=== PATIENT | male | born 1975 | race Caucasian/White ===

== ENCOUNTER 2022-08-18 14:55 | Outpatient (CLI) | payer BC, SELFPAY ==
--- NOTE | ~2022-08-18 | CT_ITS ---
EXAMINATION: CT abdomen pelvis w con DATE: 08/18/2022 15:29 INDICATION: Low abdominal pain. TECHNIQUE: Computed tomography (CT) of the abdomen and pelvis was performed with 100 mL Omnipaque 350 intravenous contrast. Automated exposure control and iterative reconstruction technique were employe d. The dose-length product was 870.74 mGy-cm. COMPARISON: None. FINDINGS: The visualized portions of the lung bases demonstrate mild atelectasis. No pleural effusion . The heart size is normal. No pericardial effusion. The liver, spleen, gallbladder, pancreas, adrena l glands, and kidneys are normal. The appendix is fluid-filled and dilated to 14 mm with wall thicken ing and surrounding fat stranding, consistent with appendicitis. The wall of the appendix is disconti nuous. There is diverticulosis of the colon without evidence of diverticulitis. There is mild ileocol ic lymphadenopathy, likely reactive. There is no free intraperitoneal fluid. There is severe lower rober mbar spondylosis. There is mild chronic anterior wedging of T11-L1 vertebral bodies. IMPRESSION: 1. Acute appendicitis, likely ruptured. Reviewed, dictated and finalized at location A.
[2022-08-18 15:13] LABS: Basophils Absolute Auto 0.1 K/mm3 (0.0-0.1); Basophils Percent Auto 0.7 % (0.2-1.2); Eosinophils Absolute Auto 0.3 K/mm3 (0-0.3); Eosinophils Percent Auto 2.7 % (0-4.4); Hematocrit 36.1 % (42.0-52.0); Hemoglobin 12.7 g/dL (14.0-18.0); Immature Granulocyte Absolute 0.03 K/mm3 (0.00-0.031); Immature Granulocyte Percent A 0.3 % (0-0.5); Lymphocytes Absolute Auto 1.66 K/mm3 (0.9-3.2); Lymphocytes Percent Auto 17.5 % (18.3-44.2); Mean Corpuscular HGB Conc 35.2 g/dl (32-36); Mean Corpuscular Volume 85.3 fl (80-100); Mean Platelet Volume 9.4 fl (7.4-10.4); Monocytes Absolute Auto 0.8 K/mm3 (0.1-0.6); Monocytes Percent Auto 8.4 % (2.6-8.5); Neutrophils Absolute Auto 6.7 K/mm3 (1.3-6.7); Neutrophils Percent Auto 70.4 % (45.5-73.1); Platelet Count Result 396 k/mm3 (150-375); Red Blood Count 4.23 M/mm3 (4.6-6.20); Red Cell Distribution Width 12.2 % (11.5-14.5); White Blood Count 9.5 K/mm3 (4.5-10.0)
[2022-08-18 15:26] LABS: Alanine Aminotransferase 20 U/L (6-50); Albumin Level 4.4 g/dL (3.5-5.1); Alkaline Phosphatase 79 U/L (38-126); Anion Gap 11 mmol/L (8-16); Aspartate Amino Transferase 21 U/L (17-59); Bilirubin,Total 0.6 mg/dL (0.2-1.3); Blood Urea Nitrogen 19 mg/dL (9-20); Calcium 9.3 mg/dL (8.4-10.2); Carbon Dioxide 27 mmol/L (22-30); Chloride 99 mmol/L (98-107); Estimated Glomerular Filt Rate > 60; Glucose 112 mg/dL (65-110); Lipase 110 U/L (23-300); Potassium 3.6 mmol/L (3.4-5.0); Sodium 137 mmol/L (137-145)
[2022-08-18 19:09] LABS: Appearance Urine Clear (Clear); Bacteria Urine None Seen /hpf; Bilirubin Urine Negative (Negative); Blood Urine Negative (Negative); Color Urine Yellow (Yellow); Glucose Urine UA Negative (Negative); Ketones Urine Negative (Negative); Leukocyte Esterase Ur Negative LEU/UL (Negative); Need Manual Microscopic Reviewed; Nitrate Urine Negative (Negative); Non Pathogenic Casts 0-2; Protein Urine Trace mg/dL (Negative); RBC Urine 0-2 /hpf (0-2); Squamous Epithelial Cell Urine None seen /hpf (Few); Urobilinogen Urine 0.2 mg/dL (<2.0); WBC Urine 0-5 /hpf
[2022-08-18 19:11] LABS: Add Urine Microscopic? YES; Specific Grav Ur 1.074 (1.001-1.035)
== END 2022-08-18 14:56 | disposition home or self-care (01) ==
PROVIDERS: Visit Provider Internal Medicine
DX: K35.80 Unspecified acute appendicitis (principal); R10.9 Unspecified abdominal pain
CPT/HCPCS: 36415; 74177; 80048; 80076; 81001; 83690; 85025; Q9967

== ENCOUNTER 2022-08-18 16:19 | Inpatient (IN) | payer BC, SELFPAY ==
[2022-08-18 16:23] VITALS: PULSE 60; RESP 16; TEMP 36.9; O2SAT 100
--- NOTE | 2022-08-18 16:28 | ED.ABDPAIN ---
HPI - Abdominal Pain General Chief Complaint: Abdominal Pain Stated Complaint: abd pain Time Seen by Provider: 08/18/22 16:21 Source: patient and RN notes reviewed Mode of arrival: ambulatory Limitations: no limitations History of Present Illness HPI narrative: This is a 47 year old male who presents from radiology for evaluation of a rupture appendicitis. Patient states he developed diffuse abdominal pain on Tuesday. He states his pain was severe on Tuesday and Tuesday. It improved on Tuesday so he has been going to work. He was evaluated by his PCP and he had outpatient CT scan today. He reports having fever over the weekend. He has been taking tylenol for his pain. He reports he last ate granola bar at 930 am. Denies abdominal surgeries Related Data Home Medications Medication Instructions Recorded Confirmed gemfibrozil 600 mg tablet 600 mg DAILY 08/18/22 08/18/22 Allergies Allergy/AdvReac Type Severity Reaction Status Date / Time No Known Allergies Allergy Verified 08/18/22 16:29 Review of Systems Review of Systems: All systems reviewed & are unremarkable except as noted in HPI and below PMFSH Past Medical History Medical History (Updated 08/18/22 @ 23:34 by Mya Garsia MD) Hyperlipidemia Surgical History Surgical History (Updated 08/18/22 @ 16:33 by Mya Garsia MD) H/O oral surgery Family History Family History (Updated 08/18/22 @ 18:28 by Malou Hernandez RN) Mother Hypertension Sibling Hypertension Sibling Hypertension Father H/O heart artery stent Social History Social History (Updated 08/18/22 @ 16:33 by Mya Garsia MD) Smoking status: Never smoker Alcohol intake: current Drinks per week: 4 Substance use: never Lack of Transportation: No Lack of Food: Never True Current Housing: I Have Housing Concerned About Future Housing: No Difficulty Paying Gas/Electric Bills: No Difficulty Paying for Meds: No Currently Unemployed: No Education: Master's Degree or Higher Difficulty w/ Childcare or Family Care: No Spiritual care concerns: No Exam Const: General: no acute distress and alert Nutritional Appearance: well nourished Orientation/consciousness: patient oriented x3 HENMT: Head: normal to inspection Eyes: EOM: EOMs intact bilaterally Chest: Chest palpation & inspection: normal inspection of the chest Resp: Effort & Inspection: normal respiratory effort Auscultation: clear to auscultation bilaterally Cardio: Rate: regular rate Rhythm: regular rhythm Heart sounds: no murmurs GI: Inspection: distended GI Palp: Yes Soft to palpation, Yes Tenderness to palpation present (GI) (diffuse), No Guarding due to palpation present (GI) and No Rigid due to palpation Auscultation: normal bowel sounds Back/Spine/Pelvis: Back: no CVA tenderness Skin: General skin exam: normal color Rashes: no rashes Wounds: no wounds Neuro: General: patient oriented x3, moves all extremities and CN's II-XI intact bilaterally Cranial nerves: Yes Nystagmus not present Speech: normal speech Gait exam (Neuro): Normal gait present Extrem: General: normal to inspection Psych: Mental Status: mental status grossly normal Affect: normal affect Attitude: cooperative Course Consultations Consultation #1: I Discussed case with Dr. Lima. He accepts patient to service. I discussed CT . He agrees with IV zosyn,IV Fluid maintenance 120 ml/hr, and repeat cbc, bmp tomorrow. Date: 08/18/22 Time: 16:38 Vital Signs Vital signs: Vital Signs Temperature 98.4 F 08/18/22 16:23 Pulse Rate 60 08/18/22 16:23 Respiratory Rate 16 08/18/22 16:23 Pulse Oximetry 100 08/18/22 16:23 Temperature 98.3 F 08/18/22 21:06 Pulse Rate 54 L 08/18/22 21:06 Respiratory Rate 18 08/18/22 21:06 Blood Pressure 131/94 H 08/18/22 21:06 Pulse Oximetry 99 08/18/22 21:06 Oxygen Delivery Room Air 08/18/22 18:39 MDM - Abdominal Pain
[2022-08-18] MEDS: PIPERACILLN/TAZ 3.375GM/NS50ML 3.375 GM/50 ML BAG IVPB (16:35)
[2022-08-18 17:00] VITALS: BP 143/91; PULSE 61; RESP 16; O2SAT 99
[2022-08-18 17:25] VITALS: BP 140/90; PULSE 60; RESP 16; O2SAT 98
[2022-08-18 17:53] VITALS: BP 146/80; PULSE 58; RESP 17; TEMP 36.7; O2SAT 100
--- NOTE | 2022-08-18 18:18 | ADMGEN ---
This patient, Pa Lemons, was admitted to 2 Medical Room 261-01. Patient/family oriented to hospital policies and general routines including ID bracelet, bed and alarms, visiting hours, pain management, procedures, bathroom and other care routines, personal items, smoking policy, room service/diet, and visiting hours. Information on how to activate the Rapid Response Team has been discussed. Patient/Family are encouraged to report perceived risks to care and to ask questions if they do not understand what they are told or what they should do.
[2022-08-18] MEDS: LACTATED RINGERS 1,000 ML 125 ML IV CONT (18:34)
[2022-08-18 21:06] VITALS: BP 131/94; PULSE 54; RESP 18; TEMP 36.8; O2SAT 99
[2022-08-19] MEDS: PIPERACILLN/TAZ 3.375GM/NS50ML 3.375 GM/50 ML BAG IVPB ×5 (00:16→23:27)
[2022-08-19] MEDS: LACTATED RINGERS 1,000 ML 125 ML IV CONT (03:06)
[2022-08-19 05:00] VITALS: BP 101/58; PULSE 62; RESP 18; TEMP 36.6; O2SAT 96
[2022-08-19 07:07] LABS: Alanine Aminotransferase 19 U/L (6-50); Alkaline Phosphatase 79 U/L (38-126); Anion Gap 7 mmol/L (8-16); Aspartate Amino Transferase 21 U/L (17-59); Bilirubin,Total 0.8 mg/dL (0.2-1.3); Blood Urea Nitrogen 16 mg/dL (9-20); Carbon Dioxide 28 mmol/L (22-30); Chloride 103 mmol/L (98-107); Estimated CRCL calculation 104 ml/min; Estimated Glomerular Filt Rate > 60; Glucose 112 mg/dL (65-110); Potassium 3.7 mmol/L (3.4-5.0); Sodium 138 mmol/L (137-145)
--- NOTE | 2022-08-19 08:42 | PM.IMHP ---
H&P: HPI History of Present Illness Date/Time: 08/19/22 08:42 Chief Complaint: Acute appendicitis Narrative: Patient is a 47-year-old healthy male who presented to the emergency room yesterday after having an outpatient CT scan abdomen pelvis performed after having severe right lower quadrant abdominal pain about 4 days ago over the weekend. He stated he had diffuse pain which localized to right lower quadrant Tuesday and Tuesday but then the pain improved by Tuesday and he went back to work. He did have subjective fevers over the weekend but none since. No diarrhea or nausea or vomiting. The CT scan showed an appendix which was dilated to 13mm with 1 area of the wall that looked to be discontinuous with possible rupture. No free air was noted. No periappendiceal abscess was noted. There was some inflammatory changes around the appendix which were mild. His white blood cell count was 9000 and he was afebrile. Review of Systems Review of Systems: I have discussed the patient with [employer] [facility] and agree with the documented note below and care plan. [facility] Past Medical History Medical History Hyperlipidemia Surgical History Surgical History H/O oral surgery Family History Family History Mother Hypertension Sibling Hypertension Sibling Hypertension Father H/O heart artery stent Social History Social History Smoking status: Never smoker Alcohol intake: current Drinks per week: 4 Substance use: never Lack of Transportation: No Lack of Food: Never True Current Housing: I Have Housing Concerned About Future Housing: No Difficulty Paying Gas/Electric Bills: No Difficulty Paying for Meds: No Currently Unemployed: No Education: Master's Degree or Higher Difficulty w/ Childcare or Family Care: No Spiritual care concerns: No Meds Home Medications and Allergies Home Medications Medication Instructions Recorded Confirmed Type gemfibrozil 600 mg tablet 600 mg DAILY 08/18/22 08/18/22 History Allergies Allergy/AdvReac Type Severity Reaction Status Date / Time No Known Allergies Allergy Verified 08/18/22 16:29 Vital Signs Vital Signs - 24 hr 08/18/22 16:23 08/18/22 17:00 08/18/22 17:25 Temperature 36.9 C Pulse Rate 60 61 60 Respiratory Rate 16 16 16 Blood Pressure 143/91 H 140/90 Pulse Oximetry 100 99 98 Oxygen Delivery 08/18/22 17:53 08/18/22 18:39 08/18/22 21:06 Temperature 36.7 C 36.8 C Pulse Rate 58 L 54 L Respiratory Rate 17 18 Blood Pressure 146/80 H 131/94 H Pulse Oximetry 100 99 Oxygen Delivery Room Air 08/19/22 05:00 Temperature 36.6 C Pulse Rate 62 Respiratory Rate 18 Blood Pressure 101/58 L Pulse Oximetry 96 Oxygen Delivery Exam Const: General: comfortable and no acute distress Other: Patient states he has minimal to no abdominal pain. HENMT: Face/Nose/Sinus: Normal nares present Mouth: Yes moist mucous membranes Eyes: General: appearance normal, both eyes and all related structures Pupils: Equal, round and reactive pupils present Neck: Neck: supple and no JVD Resp: Effort & Inspection: normal respiratory effort Auscultation: clear to auscultation bilaterally Cardio: Rate: regular rate Rhythm: regular rhythm GI: GI Palp: Yes Soft to palpation, No Firmness to palpation present (GI), No Tenderness to palpation present (GI), No Guarding due to palpation present (GI) and No Hernia present Other: Minimal tenderness without any guarding in the right lower quadrant. No masses or hernias are noted. Neuro: General: gait normal Speech: normal speech Motor exam (neuro): 5/5 motor strength present throughout Sensory Exam: normal sensation Extrem: General: normal to inspection Psych: Mental
[2022-08-19] MEDS: LACTATED RINGERS 1,000 ML 75 ML IV CONT ×2 (11:15→20:24)
[2022-08-19 14:00] VITALS: BP 119/63; PULSE 60; RESP 20; TEMP 36.7; O2SAT 99
[2022-08-19 19:44] VITALS: BP 133/65; PULSE 54; RESP 20; TEMP 36.2; O2SAT 100
[2022-08-20 03:20] VITALS: BP 110/61; PULSE 51; RESP 20; TEMP 36.8; O2SAT 96
[2022-08-20] MEDS: LACTATED RINGERS 1,000 ML 75 ML IV CONT (04:49)
[2022-08-20 05:20] LABS: Basophils Absolute Auto 0.1 K/mm3 (0.0-0.1); Basophils Percent Auto 0.8 % (0.2-1.2); Eosinophils Absolute Auto 0.3 K/mm3 (0-0.3); Hematocrit 35.1 % (42.0-52.0); Hemoglobin 11.7 g/dL (14.0-18.0); Immature Granulocyte Absolute 0.06 K/mm3 (0.00-0.031); Immature Granulocyte Percent A 0.6 % (0-0.5); Lymphocytes Absolute Auto 2.11 K/mm3 (0.9-3.2); Lymphocytes Percent Auto 22.2 % (18.3-44.2); Mean Corpuscular HGB Conc 33.3 g/dl (32-36); Mean Corpuscular Hemoglobin 29.5 pg (26-34); Mean Corpuscular Volume 88.4 fl (80-100); Mean Platelet Volume 9.3 fl (7.4-10.4); Monocytes Absolute Auto 0.8 K/mm3 (0.1-0.6); Monocytes Percent Auto 8.3 % (2.6-8.5); Neutrophils Absolute Auto 6.2 K/mm3 (1.3-6.7); Neutrophils Percent Auto 65.1 % (45.5-73.1); Platelet Count Result 355 k/mm3 (150-375); Red Blood Count 3.97 M/mm3 (4.6-6.20); Red Cell Distribution Width 12.2 % (11.5-14.5); White Blood Count 9.5 K/mm3 (4.5-10.0)
[2022-08-20] MEDS: PIPERACILLN/TAZ 3.375GM/NS50ML 3.375 GM/50 ML BAG IVPB ×2 (06:02→11:13)
--- NOTE | 2022-08-20 14:33 | PM.DS ---
DS: Admitting Diagnosis Discharge Date 08/20/22 Admitting Diagnosis Acute appendicitis with possible perforation DS: Discharge Diagnosis Discharge Diagnosis (1) Acute appendicitis: Code(s): K35.80 - Unspecified acute appendicitis Status: Acute Assessment and Plan: Patient was treated non operatively with IV antibiotics and clinically improved. Will discharge home with a course of oral antibiotics for 2 weeks and plan on an interval laparoscopic appendectomy in about 4 to 6 weeks. Was discharged home on Augmentin and Flagyl for antibiotics. Follow-up in the office in 2 weeks. DS: Summary Hospital Course Reason for hospitalization: Acute appendicitis with possible perforation without abscess Hospital Course: The patient was admitted through the emergency room after having an outpatient CT scan performed of the abdomen pelvis. He had pain in the right lower quadrant the abdomen was pretty severe 3 days prior to having the CT scan done. By the time he had a CT scan done as an outpatient the pain had mostly resolved. He did admit to having some subjective fevers during the weekend but had not had a fever in the last 24hours. On the CT scan there was a dilated appendix up to 13mm. No appendicoliths was seen. There was 1 area of the appendix where the wall seemed to be discontinuous and possibly perforated. However there is no free air the CT scan and no evidence of periappendiceal abscess. White blood cell count is normal at 9000. He was admitted to the hospital on Zosyn for IV antibiotics. His abdomen was relatively benign on exam and only had very minimal tenderness to deep palpation right lower quadrant. No generalized peritoneal signs or masses were palpated. As it appeared he would respond well to non operative management with a plan for an interval appendectomy in about 4 to 6 weeks I want head gave him a diet which he tolerated well. His white blood count next day was still 9000 and had no right lower quadrant pain. He was then discharged home on oral antibiotics to include Augmentin Flagyl for the next 2 weeks. I will see him back in the office in 1 to 2 weeks and then schedule him for a elective interval laparoscopic appendectomy. Status at Discharge Functional status at discharge: independent ambulation Overall status at discharge: patient is back to baseline Time Spent with Patient Time attestation: Total time spent providing and/or coordinating discharge services: Time spent: Less than 30 minutes Exam Narrative: The abdomen is soft and nondistended. Minimal to no tenderness in the right lower quadrant with deep palpation. No masses appreciated no hernias are noted. Const: General: comfortable and no acute distress HENMT: Face/Nose/Sinus: Normal nares present Mouth: Yes moist mucous membranes Eyes: General: appearance normal, both eyes and all related structures Pupils: Equal, round and reactive pupils present EOM: EOMs intact bilaterally Neck: Neck: supple and no JVD Resp: Effort & Inspection: normal respiratory effort Auscultation: clear to auscultation bilaterally Cardio: Rate: regular rate Rhythm: regular rhythm GI: GI Palp: Yes Soft to palpation, No Firmness to palpation present (GI), No Tenderness to palpation present (GI), No Guarding due to palpation present (GI) and No Hernia present Neuro: General: gait normal Motor exam (neuro): 5/5 motor strength present throughout Sensory Exam: normal sensation Extrem: General: normal to inspection Psych: Mental Status: mental status grossly normal Affect: normal affect DS: Data Data Completed and Pending Labs on day of discharge: Labs from last 24 hours 08/20/22 05:07 WBC 9.5 RBC 3.97 L Hgb 11.7 L Hct 35.1 L MCV 88.4 MCH 29.5 MCHC 33.3 RDW 12.2 Plt Count 355 MPV 9.3 Immature Gran % (Auto) 0.6 H Neut % (Auto) 65.1 Lymph % (Auto) 22.2 Clare % (Auto) 8.3 Eos % (Auto) 3.0 Baso % (Auto) 0.8 Ly
== END 2022-08-20 12:58 | disposition home or self-care (01) | DRG 373 ==
LOC: ANHED 16:35 → ANH2MED 17:31
PROVIDERS: Admitting Provider Surgery; Emergency Provider General Practice; Visit Provider Surgery
DX: K35.32 Acute appendicitis with perforation, localized peritonitis, and gangrene, without abscess (principal); E78.5 Hyperlipidemia, unspecified
CPT/HCPCS: 36415; 80053; 85025; 96365; 99285; G0378; J2543; J7120

== ENCOUNTER 2022-09-25 12:18 | Outpatient (CLI) | payer BC, SELFPAY ==
--- NOTE | 2022-09-25 12:34 | ECG_ITS ---
Measurements Intervals [place] Rate: 55 P: 34 GA: 144 QRS: 44 QRSD: 98 T: 45 QT: 447 QTc: 428 Interpretive Statements SINUS BRADYCARDIA BORDERLINE ECG NO PREVIOUS ECG AVAILABLE FOR COMPARISON Electronically Signed On 09-25-2022 17:46:59 CDT by Sunil Beltrán D.O.
== END 2022-09-25 12:19 | disposition home or self-care (01) ==
LOC: ANHLAB 12:20
PROVIDERS: Visit Provider Anesthesiology
DX: E78.00 Pure hypercholesterolemia, unspecified (principal); Z01.818 Encounter for other preprocedural examination; R94.31 Abnormal electrocardiogram [ECG] [EKG]
CPT/HCPCS: 93005

== ENCOUNTER 2022-09-27 01:54 | Day surgery (SDC) | payer BC, SELFPAY ==
[2022-09-20 12:46] VITALS: BMI 28.3
--- NOTE | 2022-09-20 12:51 | PC.NURSE ---
Report to the Outpatient Waiting Room, entrance under the green pavilion located off [facility], at time 6:00 on date 09/27/22. Planned Procedure Time: 7:30. Time changes happen often and if your time is changed the preop area will call you the afternoon before. - You and your visitor will be asked to self-screen and do not enter if you have any COVID symptoms. - A mask is optional within the hospital at this time. Patients may have clear liquids (water, carbonated beverages, clear teas, apple juice) until 3 hours prior to surgery (4:30) with a maximum of 20 ounces. - No food from midnight until time of surgery Take the following medications with a SIP of water the morning of surgery: NONE DO NOT STOP ANY OF YOUR OTHER PRESCRIPTION MEDICATIONS PRIOR TO SURGERY?EXCEPT THE FOLLOWING Medications to discontinue per physician: N/A Date to take last dose: N/A Please no make-up, nail german, hairspray, perfume, deodorant, or body powder the day of surgery. No jewelry (including any body piercings) or valuables the day of surgery, leave them at home. Please take a shower or bath the night before, or the morning of, surgery with an antibacterial soap. Wear comfortable, loose fitting clothing. - Jewelry must be removed prior to entering the operating room. Rings and piercings that are not removed may be cut off. - The hospital will not accept responsibility for valuables. - Please leave all valuables, including medications, at home the day of surgery. If you are going home after surgery, a licensed swing driver must drive you home. - NO public transportation without another adult if you receive anesthesia. - We recommend that an adult stay with you for 24 hours following discharge. - We also recommend that you do not drive, make important decision, drink alcoholic beverages, or take any drugs that were not prescribed by your health care provider for at least 24 hours after your discharge time. Follow any additional instructions given to you from your surgeon. If you or anyone in your household have experienced Covid symptoms in the past week, please notify your surgeon or the nurse liaison at the phone number below for possible testing. Telephone instructions given to PT - SABA HOGAN and asked if any additional questions and then verbalized understanding. Patient advised to call surgeon office or pre surgery nurse liaison [phone] if any additional questions.
[2022-09-27] VITALS (9 sets, daily range): BP systolic 128–140; BP diastolic 73–78; PULSE 45–70; RESP 12–14; TEMP 36.2–36.3; O2SAT 95–100
--- NOTE | 2022-09-27 07:24 | WPDHPUPDATE1 ---
History and Physical Update Update Date/Time: 09/27/22 07:24 History and Physical has been reviewed, including an updated exam of the patient. There are NO changes in the patient's condition. Risks, benefits, and alternatives have been discussed and questions answered. Patient agrees to proceed with procedure.
[2022-09-27] MEDS: KETOROLAC 15 MG/ML VIAL (*BKC) IV PUSH ×2 (08:20→10:20)
[2022-09-27] MEDS: LACTATED RINGERS 1,000 ML 30 ML IV CONT ×2 (08:22→10:44)
--- NOTE | 2022-09-27 08:25 | P.PNAN_ITS ---
Anes - Eval Pre Procedure Procedure: Operation Date: 09/27/22 09:30 Proposed Procedures p Laparoscopic Interval Appendectomy, Possible Open - Pa Lima MD Date/Time: 09/27/22 08:25 Surgeon: Clarence Preop Diagnosis: Perforated appendix Pre Op Diagnosis: hx of perforated appendicitis Patient Data Age: 47 Gender: M Height: 1.85 m Weight: 97.35 kg Last Vital Signs Temp 97.2 F L 09/27/22 08:19 Pulse 45 L 09/27/22 08:19 Resp 14 09/27/22 08:19 BP 130/77 09/27/22 08:19 Pulse Ox 100 09/27/22 08:19 O2 Del Method Room Air 09/27/22 08:19 Allergies Allergy/AdvReac Type Severity Reaction Status Date / Time No Known Allergies Allergy Verified 09/27/22 08:24 Home Medications Medication Instructions Recorded Confirmed Type gemfibrozil 600 mg tablet 600 mg DAILY 08/18/22 09/20/22 History ECG: ? Measurements Intervals? [place]? Rate: ? 55 ? P:? 34 SD: ? 144? QRS:? 44 QRSD: ? 98 ? T:? 45 QT: ? 447? QTc:? 428? Interpretive Statements SINUS BRADYCARDIA BORDERLINE ECG NO PREVIOUS ECG AVAILABLE FOR COMPARISON Electronically Signed On 09-25-2022 17:46:59 CDT by Sunil Beltrán D.O. Dictated By:? Sunil Beltrán DO? 09/25/221745 Signed By:? ? <Electronically signed by? Sunil Beltrán DO in OV> 09/25/221746 Patient hx anesthesia problems: none Family hx anesthesia problems: none Results Review: All pre-operative results and documents have been reviewed as part of the pre- operative evaluation. [facility] Past Medical History Medical History Hyperlipidemia Surgical History Surgical History H/O oral surgery Family History Family History Mother Hypertension Sibling Hypertension Sibling Hypertension Father H/O heart artery stent Social History Social History Smoking status: Never smoker Alcohol intake: current Drinks per week: 4 Alcohol use details: 3/MONTH Substance use: never Substance use type: does not use Lack of Transportation: No Lack of Food: Never True Current Housing: I Have Housing Concerned About Future Housing: No Difficulty Paying Gas/Electric Bills: No Difficulty Paying for Meds: No Currently Unemployed: No Education: Master's Degree or Higher Difficulty w/ Childcare or Family Care: No Living arrangements: with family Spiritual care concerns: No Exam Day of Procedure 09/27/22 08:25
--- NOTE | 2022-09-27 08:30 | P.PNAN_ITS ---
Anes - Eval Final PreProcedure Day of Procedure 09/27/22 08:30 Patient weight: overweight Heart: regular rate and rhythm Lungs: clear to auscultation Airway: Mallampati scale class II Neurological: alert and oriented Last oral intake: >/= 8 hours ASA classification: II Emergent: no Anesthetic plan: proceed Anesthesia type and monitoring: general ETT and standard monitoring Results Review: All pre-operative results and documents have been reviewed as part of the pre- operative evaluation. Informed Consent: The patient's anesthetic plan and its attendant risks and benefits were discussed with the patient/family/POA. Questions were solicited and answers provided to the satisfaction of the patient/family/POA.
[2022-09-27] MEDS: ceFAZolin 2 GM/D5W 50 ML 2 GM/50 ML BAG IVPB (08:35)
[2022-09-27] MEDS: metroNIDAZOLE 500 MG/ISO 100ML 500 MG/100 ML BAG 100 MG IVPB (09:09)
[2022-09-27] MEDS: BUPivacaine HCL 0.5% 10 ML AMP 20 ML INFILTRATE (09:58)
[2022-09-27] MEDS: LIDO 1%/EPINEPHRINE 1:100,000 50 ML VIAL INFILTRATE (09:59)
--- NOTE | 2022-09-27 10:40 | SUR.OPER ---
200mL of clear yellow urine drained from avalos
--- NOTE | 2022-09-27 10:44 | W.PM.PROC2 ---
Procedure Note - Detailed Date of Procedure 09/27/22 Pre-op Diagnosis Hx of perforated appendicitis Post-op Diagnosis Same Procedure Performed Interval laparoscopic appendectomy Surgeon Pa Lima MD Tray Delivery Aide Pritesh Burton, MANAGER FOOD BEVERAGE Anesthesia General Indications Patient is a 47-year-old white male who about 5 weeks ago was admitted to the hospital with an acute appendicitis with small area of perforation. He actually responded well to a course of nonoperative management and IV and oral antibiotics. He presents now for an interval laparoscopic appendectomy. Findings The appendix was chronically inflamed and mildly thickened with adhesions consistent with prior inflammation. No periappendiceal abscess or fecal material was noted. The base of the appendix appeared to be normal. Description of Procedure After informed consent was obtained patient brought to the operating room was placed in supine position and general endotracheal anesthesia was administered. A Briseno catheter was placed across the bladder. The abdomen was then prepped and draped in usual sterile fashion. I 1st entered the abdomen in the left upper quadrant utilizing a 5mm Optiview port with a direct optical insertion. Once inside the abdomen insufflated adequate pneumoperitoneum and visualized the lower abdomen pelvis. There were no adhesions of the bowel or omentum to the abdominal wall or pelvis. I then placed a 5mm suprapubic trocar port and a 12mm periumbilical trocar port and a 5mm left lower quadrant trocar port all under direct visualization. I then placed the patient head-down Trendelenburg position and retracted the small bowel and the pelvis up into the midportions and upper portions of the abdomen. The terminal ileum was urine to the mesentery with some chronic inflammatory changes and a few adhesions to the lateral wall. A careful the scopic scissor dissection I was able to release these adhesions to expose the appendix. With the terminal ileum was mobilized cephalad I was able to hold the appendix in the midportion and followed back to the base where the cecum appeared to be normal. I then made a defect through the mesoappendix near the base with a [place] dissector and then utilized a vascular load to a 45mm Endo-MELIA stapler to divide the mesoappendix. I then used a blue load to the same stapler to divide the appendix flush with the cecum. The appendix was then placed in Endo-Catch bag and brought out through the periumbilical trocar port site. The appendix was passed off table to pathology for examination. I then irrigated out the right lower quadrant the abdomen with sterile saline solution. Both staple lines appeared to be hemostatic. I then removed all the trocar ports under direct visualization all port sites appeared hemostatic. I then allowed the abdomen decompressed. The 12mm periumbilical trocar port fascial defect was then closed utilizing 0 Vicryl suture placed in a figure-eight fashion. All the port sites were then closed utilizing a running subcuticular 4-0 Monocryl suture at the skin level. Skin glue was used for final dressing. The patient tolerated the procedure well no complications. All sponges, needles, and instrument counts were correct at the end procedure. EBL was _10__cc. The patient was awakened and taken to recovery in stable and satisfactory condition. Implants None Estimated Blood Loss 10 Drains No Packing No Pathology Yes (Appendix to pathology) Complications No immediate complications Condition Stable Disposition PACU [facility] Billing Surgery - Charge Forward: Surgery Billing
== END 2022-09-27 12:10 | disposition home or self-care (01) ==
PROVIDERS: PCP Internal Medicine; Visit Provider Surgery
PROC: 0DTJ4ZZ Resection of Appendix, Percutaneous Endoscopic Approach (ICD-10-PCS; CPT 44970; principal; 2022-09-27 09:30)
DX: K36 Other appendicitis (principal); E78.5 Hyperlipidemia, unspecified
CPT/HCPCS: 44970; 88304; J0330; J0690; J1100; J1170; J1885; J2250; J2405; J2704; J2710; J7030; J7120

== ENCOUNTER 2023-12-02 07:41 | Outpatient (CLI) | payer BC, SELFPAY ==
[2023-12-02 08:16] LABS: Alanine Aminotransferase 25 U/L (6-50); Albumin Level 5.1 g/dL (3.5-5.1); Alkaline Phosphatase 78 U/L (38-126); Anion Gap 12 mmol/L (4-12); Aspartate Amino Transferase 27 U/L (17-59); Bilirubin,Total 0.6 mg/dL (0.2-1.3); Blood Urea Nitrogen 22 mg/dL (9-20); Calcium 9.4 mg/dL (8.4-10.2); Carbon Dioxide 28 mmol/L (22-30); Chloride 100 mmol/L (98-107); Cholesterol 237 mg/dL (0-200); Estimated Glomerular Filt Rate > 60; Glucose 107 mg/dL (65-110); HDL Direct 49 mg/dL; Potassium 3.8 mmol/L (3.4-5.0); Sodium 140 mmol/L (137-145); Triglycerides 129 mg/dL (<150)
[2023-12-02 08:21] LABS: Hematocrit 41.5 % (42.0-52.0); Hemoglobin 14.1 g/dL (14.0-18.0); Mean Corpuscular Hemoglobin 30.2 pg (26-34); Mean Corpuscular Volume 88.9 fl (80-100); Mean Platelet Volume 10.5 fl (7.4-10.4); Platelet Count Result 313 k/mm3 (150-375); Red Blood Count 4.67 M/mm3 (4.6-6.20); Red Cell Distribution Width 12.3 % (11.5-14.5); White Blood Count 4.9 K/mm3 (4.5-10.0)
[2023-12-02 08:27] LABS: LDL Cholesterol Direct 146 mg/dL
[2023-12-02 08:46] LABS: Prostate Specific Antigen 1.5 ng/mL (< OR = 4.0)
[2023-12-02 09:16] LABS: Vitamin D 25 Hydroxy 32.9 ng/mL
== END 2023-12-02 07:42 | disposition home or self-care (01) ==
LOC: ANHLAB 07:42
PROVIDERS: PCP Family Medicine; Visit Provider Family Medicine
DX: Z00.00 Encounter for general adult medical examination without abnormal findings (principal); E66.9 Obesity, unspecified; E78.5 Hyperlipidemia, unspecified; Z76.89 Persons encountering health services in other specified circumstances
CPT/HCPCS: 36415; 80053; 80061; 82306; 84153; 85027; G0103

== ENCOUNTER 2024-12-01 07:08 | Outpatient (CLI) | payer BC, SELFPAY ==
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
--- OUTSIDE RECORDS SUMMARY | 2024-12-01 07:11 | XMS_ITS | Encounter Summary ---
Author Organization [facility] Address [address] [place] [address] Phone Care Team Providers Care Systems Development Consultant Name Role Phone Abdullahi Perry MD Primary Care Provider [phone] Abdullahi Perry MD Unavailable [phone] Encounter Details Date Type Department Care Team (Late st Contact Info) Description 09/03/2017 Orders Only [facility] ProviderMyla MD [address] [place] [address] Social History Tobacco Use Types Packs/Day Years Used Date Smoking Tobacco: Never Smokeless Tobacco: Never Alcohol Use Standard Drinks/Week Comments Yes 0 (1 standard drink = 0.6 oz pur e alcohol) Sex and Gender Information Value Date Recorded Sex Assigned at Not on file 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 Historical Provider LAB BLOOD ORDERABLES Mariana l Result documented in this encounter Visit Diagnoses Not on filedocumented in this encounter Care Teams Systems Development Consultant Relationship Specialty Start Date End Date Abdullahi Perry MD PCP - General Internal Medicine 06/27/17 Abdullahi Perry MD Internal Medicine 06/27/17 documented as of this encounter
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
[2024-12-01 07:29] LABS: Hematocrit 40.1 % (42.0-52.0); Hemoglobin 13.9 g/dL (14.0-18.0); Immature Granulocyte Percent A 0.3 % (0-0.5); Lymphocytes Absolute Auto 2.06 K/mm3 (0.9-3.2); Mean Corpuscular HGB Conc 34.7 g/dl (32-36); Mean Corpuscular Hemoglobin 30.3 pg (26-34); Mean Corpuscular Volume 87.6 fl (80-100); Nucleated Red Blood Cells Absolute Auto 0.000 K/mm3 (0.0-0.012); Nucleated Red Blood Cells Perc 0.0 % (0.0-0.2); Platelet Count Result 307 k/mm3 (150-375); Red Blood Count 4.58 M/mm3 (4.6-6.20); White Blood Count 5.8 K/mm3 (4.5-10.0)
[2024-12-01 07:53] LABS: Alanine Aminotransferase 20 U/L (6-50); Albumin Level 4.5 g/dL (3.5-5.1); Alkaline Phosphatase 87 U/L (38-126); Anion Gap 10 mmol/L (4-12); Aspartate Amino Transferase 29 U/L (17-59); Bilirubin,Total 0.6 mg/dL (0.2-1.3); Blood Urea Nitrogen 21 mg/dL (9-20); Calcium 9.4 mg/dL (8.4-10.2); Carbon Dioxide 24 mmol/L (22-30); Chloride 105 mmol/L (98-107); Cholesterol 251 mg/dL (0-200); Estimated Glomerular Filt Rate > 60; Glucose 118 mg/dL (65-110); HDL Direct 43 mg/dL; Potassium 4.1 mmol/L (3.4-5.0); Sodium 139 mmol/L (137-145); Total Protein 7.7 g/dL (6.3-8.2); Triglycerides 290 mg/dL (<150)
[2024-12-01 08:28] LABS: Prostate Specific Antigen 1.5 ng/mL (< OR = 4.0)
[2024-12-05 01:07] LABS: Free Testosterone (Direct) 8.7 pg/mL (7.2-24.0)
== END 2024-12-01 07:09 | disposition home or self-care (01) ==
LOC: ANHLAB 07:10
PROVIDERS: PCP Family Medicine; Visit Provider Family Medicine
DX: Z00.00 Encounter for general adult medical examination without abnormal findings (principal); Z12.5 Encounter for screening for malignant neoplasm of prostate; E66.9 Obesity, unspecified; E78.5 Hyperlipidemia, unspecified
CPT/HCPCS: 36415; 80053; 80061; 82172; 82306; 84153; 84402; 85025; G0103

== ENCOUNTER 2025-02-01 14:50 | Outpatient (CLI) | payer BC, SELFPAY ==
--- OUTSIDE RECORDS SUMMARY | 2025-02-01 14:54 | XMS_ITS | Clinical Summary ---
Author Organization [facility] Medical Office Building A Address [address] [place] [address] Care Team Providers Care Steel Detailer Name Role Phone Abdullahi Perry MD Primary Care Provider [phone] Abdullahi Perry MD Unavailable Allergies No known active allergies Medications loratadine-pseu [...] 10 years. Colon cancer screening recommended per [place] Cancer [employer] guidelines. 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 Gender Identity Not on file Sexual Orientation [...] Additional history exists Covid-19 Vaccine (3 - 2025- season) 2025 06/28/2020, 05/31/2020 Influenza Vaccine (#1) 2025 02/21/2020, 2018 DTaP/Tdap/Td Vaccine (3 - Td or Tdap) 06/27/2027 06/27/2017, 05/09/2007 Pneumococcal vaccine <65 Aged Out No longer eligible based on patient's age to complete this topic Insurance [facility] [place] [facility] [place] [facility] Care Teams Steel Detailer Relationship Specialty Start Date End Date Abdullahi Perry MD PCP - General Internal Medicine 06/27/17 Abdullahi Perry MD Internal Medicine 06/27/17
--- OUTSIDE RECORDS SUMMARY | 2025-02-01 14:54 | XMS_ITS | Encounter Summary ---
Author Organization [facility] Address [address] [place] [address] Phone Care Team Providers Care Supervisor Wet End Name Role Phone Abdullahi Perry MD Primary Care Provider [phone] Abdullahi Perry MD Unavailable [phone] Encounter Details Date Type Department Care Team (Late st Contact Info) Description 09/03/2017 Orders Only [facility] ProviderMyla MD [address] [place] [address] Social History Tobacco Use Types Packs/Day Years Used Date Smoking Tobacco: Never Smokeless Tobacco: Never Alcohol Use Standard Drinks/Week Comments Yes 0 (1 standard drink = 0.6 oz pur e alcohol) Sex and Gender Information Value Date Recorded Sex Assigned at Not on file 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
[2025-02-05 16:08] LABS: Free Testosterone (Direct) 6.4 pg/mL (7.2-24.0)
== END 2025-02-01 14:51 | disposition home or self-care (01) ==
LOC: ANHLAB 14:52
PROVIDERS: PCP Family Medicine; Visit Provider Family Medicine
DX: E78.5 Hyperlipidemia, unspecified (principal)
CPT/HCPCS: 83695; 84402; 84403